=== PATIENT | female | born 1990 | race African-American/Black ===

== ENCOUNTER 2017-06-19 10:49 | Emergency (ER) | payer BC, OTHER ==
[~2017-06-19] VITALS: Ht 167.6 cm; Wt 101.5 kg
[~2017-06-19 10:49] MED LIST: DICL50 PO; RANI150 PO
[2017-06-19 10:50] VITALS: BP 126/62; PULSE 106; RESP 20; TEMP 97.7; O2SAT 99
--- NOTE | 2017-06-19 11:09 | PD ---
HPI Chief Complaint: Oral / Dental Pain or Problem Time Seen by Provider: 11:05 Travel History International Travel<30 days: No Contact w/Intl Traveler<30days: No Traveled to known affect area: No History of Present Illness HPI 26-year-old female presents to the emergency department with complaint of left upper oral pain after having a tooth extracted 10 days ago. She says it's dry socket although when she followed up with her dentist the other day she was told it was not dry socket. She denies fever, vomiting. She has a taste in her mouth that feels like his infection. Pain radiates to her left ear. She has been taking ibuprofen for symptom management. Has no other medical complaints. Allergies to latex and morphine. No other modifying factors or associated signs and symptoms. PFSH Past Medical History Hx Anticoagulant Therapy: No Bipolar Disorder: Yes (TOLD SHE WAS BIPOLAR BUT WAS NOT GIVEN MEDS FOR SAME) Cardiovascular Problems: No Chemotherapy: No Cerebrovascular Accident: No Diabetes: No Diminished Hearing: No Respiratory: No ?: Not LMP: 05/27/17 : 0 Past Surgical History Section: Yes Social History Alcohol Use: No Tobacco Use: No Substance Use: No Allergies-Medications (Allergen,Severity, Reaction): Coded Allergies: Latex (Verified Allergy, Intermediate, HIVES, 06/19/17) Morphine (Verified Allergy, Intermediate, HIVES, 06/19/17) Reported Meds & Prescriptions Reported Meds & Active Scripts Active Tramadol (Tramadol HCl) 50 Mg Tab 50 Mg PO Q4H PRN Review of Systems Except as stated in HPI: all other systems reviewed are Neg Physical Exam Narrative GENERAL: Well-nourished, well-developed female patient, in no acute distress; afebrile, nontoxic-appearing SKIN: Warm and dry. HEAD: Atraumatic. Normocephalic. No facial edema, erythema, tenderness on palpation. No lymphadenopathy. EYES: Pupils equal and round. No scleral icterus. No injection or drainage. ENT: Mucosa pink and moist. Airway patent. MOUTH: Mucous membranes moist, no lesions, tongue and gums appear normal. Tooth #13 post extraction: area is with minimal erythema and without edema, drainage; white area noted area of tooth extraction. Surrounding gingiva is with minimal erythema; without edema, drainage. No obvious abscess noted. NECK: Trachea midline. No lymphadenopathy. CARDIOVASCULAR: Regular rate. RESPIRATORY: No accessory muscle use. GASTROINTESTINAL: Round. MUSCULOSKELETAL: No obvious deformities. No clubbing. No cyanosis. No edema. NEUROLOGICAL: Awake and alert. Oriented 3. No obvious cranial nerve deficits. Motor grossly within normal limits. Normal speech. PSYCHIATRIC: Appropriate mood and affect; insight and judgment normal. Data Data Last Documented VS Vital Signs Date Time Temp Pulse Resp B/P Pulse Ox O2 Delivery O2 Flow Rate FiO2 06/19/17 10:50 97.7 106 20 126/62 99 Room Air MDM Medical Decision Making Medical Screen Exam Complete: Yes Emergency Medical Condition: Yes Medical Record Reviewed: Yes Differential Diagnosis Dry socket, pain following oral surgery, status post tooth extraction, postop infection, medical clearance Narrative Course 26-year-old female status post tooth extraction 10 days ago with pain that radiates to her left ear. She followed up with her dentist and was told she did not have dry socket. Denies fever, vomiting. Patient is afebrile and nontoxic-appearing. She has an appointment with her dentist on June 24. Is going to prescribe amoxicillin and give the patient another prescription for some ibuprofen. The patient does not like my plan of care and would like something more for pain, other than ibuprofen. She is requesting to see another provider. Dr. Thompson, my attending physician, will evaluate the patient. Dr. Thompson the patient does have a dry socket and will prescribe tramadol for home. Instructed patient to follow up with dentist. Instructed patient to follow up with primary care provider. Patient verbalizes understanding and agreement with treatment plan. Patient is medically cleared and stable for discharge. Discussed reasons to return to the emergency department. Patient agrees with treatment plan. The patients vital signs are stable and the patient is stable for outpatient follow-up and treatment. Patient discharged home, stable and in no acute distress. Diagnosis Primary Impression: S/P tooth extraction Additional Impression: Pain following oral surgery Referrals: Dentist Primary Care Physician Patient Instructions: General Instructions, Tooth Extraction (ED) Additional Instructions: Ibuprofen or Tylenol as directed and as needed for pain and inflammation Ice as needed to reduce pain and inflammation Follow-up with dentist Follow-up with primary care provider Med/Other Pt SpecificInfo: Prescription(s) given Scripts Tramadol 50 Mg Tab50 Mg PO Q4H PRN (PAIN) #14 TAB Ref 0 Prov:Highet,Spring H. MD 06/19/17 Disposition: 01 DISCHARGE HOME Condition: Stable Tootie Murillo Jun 19, 2017 11:09
[2017-06-19] MEDS ORDERED: TRAM50TA PO (11:29)
--- NOTE | 2017-06-19 11:29 | PD ---
Data Data Last Documented VS Vital Signs Date Time Temp Pulse Resp B/P Pulse Ox O2 Delivery O2 Flow Rate FiO2 06/19/17 10:50 97.7 106 20 126/62 99 Room Air MDM Supervised Visit with CIRA: Yes Narrative Course The history, exam, and medical decision-making in the associated midlevel provider note were completed with my assistance. I reviewed and agree with the findings presented. I attest that I had a [id number] encounter with the patient on the same day, and personally performed and documented my assessment and findings in the medical record. *My assessment and Findings: This is a 26-year-old female who presents to the emergency department having had a tooth extraction 10 days ago. She has a pearly bony area at the site of extraction exposed with no clot over top suggestive of alveolar osteitis. Patient will be discharged with tramadol and can follow-up with her dentist. Diagnosis Primary Impression: S/P tooth extraction Additional Impression: Pain following oral surgery Referrals: Dentist Primary Care Physician Patient Instructions: General Instructions, Tooth Extraction (ED) Scripts No Active Prescriptions or Reported Meds Disposition: 01 DISCHARGE HOME Condition: Stable Spring Thompson MD Jun 19, 2017 11:29
== END 2017-06-19 12:04 | disposition home or self-care (01) ==
LOC: NEPD 10:49
DX: K13.79 Other lesions of oral mucosa (principal); M27.3 Alveolitis of jaws; F31.9 Bipolar disorder, unspecified; Z79.899 Other long term (current) drug therapy
CPT/HCPCS: 99283

== ENCOUNTER 2017-09-15 17:17 | Emergency (ER) | payer OTHER, BC ==
[~2017-09-15] VITALS: Ht 167.6 cm; Wt 96.0 kg
[~2017-09-15 17:17] MED LIST changes: -DICL50 PO; -RANI150 PO; +TRAM50TA PO
[2017-09-15 17:18] VITALS: BP 133/74; PULSE 91; RESP 18; TEMP 99.1; O2SAT 100
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
[2017-09-15] MEDS ORDERED: KETOROLAC TROMETHAMINE 60 MG/2 ML (IM) VIAL IM ONE (18:30)
[2017-09-15] MEDS ORDERED: ORPHENADRINE INJ 60 MG/2 ML AMP IM ONE (18:30)
[2017-09-15] MEDS ORDERED: IBUPROFEN 800 MG TAB PO ONE (19:00)
[2017-09-15] MEDS ORDERED: CYCLOBENZAPRINE HCL 10 MG TAB PO ONE (19:00)
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
[2017-09-15] MEDS ORDERED: CYCL10TA PO (19:28)
[2017-09-15] MEDS ORDERED: NAPR500 PO (19:28)
== END 2017-09-15 19:51 | disposition home or self-care (01) ==
LOC: NEPK 17:17
DX: S16.1XXA Strain of muscle, fascia and tendon at neck level, initial encounter (principal); M54.9 Dorsalgia, unspecified; V89.2XXA Person injured in unspecified motor-vehicle accident, traffic, initial encounter
CPT/HCPCS: 72125